=== PATIENT | female | born 1965 | race Native Hawaiian/Other Pacific Islander ===

== ENCOUNTER 2017-06-24 12:09 | Inpatient (IN) | payer OTHER ==
[2017-06-24] VITALS (8 sets, daily range): BP systolic 98–109; BP diastolic 46–67; PULSE 62–85; RESP 18; TEMP 97.5–97.6; O2SAT 98–100
[~2017-06-24] VITALS: Ht 154.9 cm; Wt 57.0 kg
[2017-06-24] MEDS ORDERED: PROCHLORPERAZINE INJ 10 MG/2 ML VIAL IV PUSH ONE (12:45)
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
[2017-06-24] MEDS ORDERED: MORPHINE SULFATE 8 MG/ML INJ IV PUSH ONE (14:30)
[2017-06-24] MEDS ORDERED: ONDANSETRON HCL 4 MG/2 ML VIAL IV PUSH ONE (14:30)
[2017-06-24 14:59] LABS: AUTOMATED NEUTROPHIL # 4.5 TH/MM3 (1.8-7.7); BASOPHIL % 0.6 % (0.0-2.0); EOSINOPHIL % 0.1 % (0.0-4.0); HEMATOCRIT 36.3 % (35.0-46.0); HEMOGLOBIN 12.4 GM/DL (11.6-15.3); LYMPH % 14.8 % (9.0-44.0); LYMPHOCYTE # 0.8 TH/MM3 (1.0-4.8); MEAN CELL VOLUME 95.4 FL (80.0-100.0); MEAN CORPUSCULAR HEMOGLOBIN 32.6 PG (27.0-34.0); MEAN CORPUSCULAR HGB CONC 34.2 % (32.0-36.0); MEAN PLATELET VOLUME 9.2 FL (7.0-11.0); MONO % 3.7 % (0.0-8.0); MONOCYTE # 0.2 TH/MM3 (0-0.9); NEUT % 80.8 % (16.0-70.0); PLATELET COUNT 223 TH/MM3 (150-450); RED BLOOD COUNT 3.81 MIL/MM3 (4.00-5.30); RED CELL DISTRIBUTION WIDTH 13.2 % (11.6-17.2); WHITE BLOOD COUNT 5.5 TH/MM3 (4.0-11.0)
[2017-06-24 15:17] LABS: BICARBONATE 23.6 MEQ/L (21.0-32.0); CALCIUM 8.2 MG/DL (8.5-10.1); CREATININE 0.86 MG/DL (0.50-1.00)
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
[2017-06-24] MEDS ORDERED: IOHEXOL 350 MG/ML 10 ML VIAL (for RAD DIAG) IVCONTRAST ONE (17:00)
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
--- NOTE | 2017-06-24 18:11 | RADRPT ---
EXAM DATE/TIME: 06/24/2017 16:48 [facility] COMPARISON: CT CERVICAL SPINE W/O CONTRAST, June 24, 2017, 13:15. CT FACIAL BONES W/O C ONTRAST, June 24, 2017, 13:15. INDICATIONS : Abnormal prior CT cervical spine. IV CONTRAST: 75 cc Omnipaque 350 (iohexol) IV RADIATION DOSE: 6.53 CTDIvol (mGy) MEDICAL HISTORY : None SURGICAL HISTORY : None. ENCOUNTER: Initial ACUITY: 1 day PAIN SCALE: 7/10 LOCATION: Bilateral neck Elevated flow velocities and ICA/CCA ratios have been found to correlate with increased degrees of vessel stenosis, calculated as percentage of diameter relative to a normal segment of distal ICA/CCA. TECHNIQUE: Volumetric scanning was performed using a multirow detector CT scanner. The data was post processed with a variety of visualization algorithms including full-volume maximum intensity pro jection, multiplanar sliding thin-slab reformation, curved-planar reformation, and surface-rendering techniques. Using automated exposure control and adjustment of the mA and/or kV according to patient size, radiation dose was kept as low as reasonably achievable to obtain optimal diagnostic quality i mages. DICOM format image data is available electronically for review and comparison. FINDINGS: AORTIC ARCH: There is a three-vessel origin of the great vessels from the aorta. No evidence of ostial narrowing. RIGHT CAROTID: The right common carotid is widely patent. The bifurcation is patent. The right in ternal carotid is patent throughout its course however it is significantly smaller in size than the l eft. There is no evidence of dissection. No definite intimal hematoma is seen. It is possible this is on a congenital basis however I cannot exclude this being the result of a posttraumatic injury to th e carotid. LEFT CAROTID: The left common carotid is widely patent. The bifurcation is patent. The internal c arotid and external carotid are widely patent throughout its course. Both vertebral arteries are patent. The basilar is patent. VERTEBRALS: The vertebral arteries have a symmetric diameter. No stenotic lesions are seen. CONCLUSION: 1. The examination demonstrates the right internal carotid to be considerably smaller in size than th e left. I do not see definite evidence of a dissection I do not see definite evidence of intimal cesar dong. It is possible this is on a congenital basis however I cannot exclude this as a sequelae of tra umatic injury. I would recommend this patient undergo a followup examination in 24 hours to assess th is for stability. 2. The vertebral arteries are widely patent bilaterally. 3. The left carotid circulation is widely patent. Jr Lee MD on June 24, 2017 at 18:01 Board Certified Radiologist. This report was verified electronically.
[2017-06-24] MEDS ORDERED: Post-op Orders (for Pharmacy) XX ONE (18:45)
[2017-06-24] MEDS ORDERED: NALOXONE HCL 0.4 MG/ML AMP IV PUSH PRN (18:45)
[2017-06-24] MEDS ORDERED: SODIUM CHLORIDE 0.9% FLUSH 10 ML FLUSH IV FLUSH PRN (18:45)
[2017-06-24] MEDS ORDERED: ONDANSETRON HCL 4 MG/2 ML VIAL IV PUSH PRN (18:45)
[2017-06-24] MEDS: SODIUM CHLORIDE 0.9% FLUSH 10 ML FLUSH IV FLUSH SCH (19:06)
[2017-06-24] MEDS: FAMOTIDINE 20 MG TAB PO SCH (19:06)
[2017-06-24] MEDS ORDERED: ACETAMINOPHEN 325 MG TAB PO PRN (19:15)
[2017-06-24] MEDS: SODIUM CHLOR 0.9% 1000 ML INJ 1,000 ML IV SCH (19:22)
[2017-06-24] MEDS: BACITRACIN TOP OINT 15 GM TUBE TOP SCH (19:22)
[2017-06-25 01:00] VITALS: BP 95/54; PULSE 66; RESP 18; O2SAT 99
[2017-06-25 03:00] VITALS: BP 91/56; PULSE 62; RESP 18; O2SAT 99
[2017-06-25] MEDS ORDERED: DIPHTH/TETANUS/ACEL PERTUSSIS (BOOSTER) 0.5 ML VIAL/PFS IM ONE (03:45)
[2017-06-25 05:55] VITALS: BP 91/54; PULSE 70; RESP 17; TEMP 97.3; O2SAT 99
[2017-06-25 07:36] VITALS: BP 92/50; PULSE 71; RESP 18; TEMP 97.5; O2SAT 97
[2017-06-25] MEDS ORDERED: DOCUSATE SODIUM 50 MG/SENNA 8.6 MG TAB PO SCH (09:00)
[2017-06-25] MEDS: SODIUM CHLORIDE 0.9% FLUSH 10 ML FLUSH IV FLUSH SCH (09:00)
[2017-06-25] MEDS: FAMOTIDINE 20 MG TAB PO SCH (09:00)
[2017-06-25] MEDS: SODIUM CHLOR 0.9% 1000 ML INJ 1,000 ML IV SCH (10:57)
[2017-06-25] MEDS: BACITRACIN TOP OINT 15 GM TUBE TOP SCH (11:26)
[2017-06-25 11:30] VITALS: BP 93/52; PULSE 73; RESP 18; TEMP 97.8; O2SAT 100
[2017-06-25] MEDS ORDERED: PERI PO (13:08)
[2017-06-25] MEDS ORDERED: ACET325T15 PO (13:08)
[2017-06-25 13:52] LABS: AUTOMATED NEUTROPHIL # 3.6 TH/MM3 (1.8-7.7); BASOPHIL % 0.4 % (0.0-2.0); EOSINOPHIL % 0.8 % (0.0-4.0); HEMATOCRIT 36.9 % (35.0-46.0); HEMOGLOBIN 12.4 GM/DL (11.6-15.3); LYMPH % 27.1 % (9.0-44.0); LYMPHOCYTE # 1.5 TH/MM3 (1.0-4.8); MEAN CELL VOLUME 96.3 FL (80.0-100.0); MEAN CORPUSCULAR HEMOGLOBIN 32.4 PG (27.0-34.0); MEAN CORPUSCULAR HGB CONC 33.6 % (32.0-36.0); MONO % 7.6 % (0.0-8.0); MONOCYTE # 0.4 TH/MM3 (0-0.9); NEUT % 64.1 % (16.0-70.0); PLATELET COUNT 208 TH/MM3 (150-450); RED BLOOD COUNT 3.83 MIL/MM3 (4.00-5.30); RED CELL DISTRIBUTION WIDTH 13.7 % (11.6-17.2); WHITE BLOOD COUNT 5.5 TH/MM3 (4.0-11.0)
[2017-06-25 14:19] LABS: BICARBONATE 26.5 MEQ/L (21.0-32.0); CALCIUM 7.8 MG/DL (8.5-10.1); CREATININE 0.73 MG/DL (0.50-1.00)
[2017-06-25 15:40] VITALS: BP 92/57; PULSE 63; RESP 18; TEMP 98.8; O2SAT 97
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
== END 2017-06-25 17:55 | disposition left against medical advice (07) | DRG 89 ==
LOC: NEPE 12:09 → NEDA 18:39 → NEDH 23:22 → N06A 06-25 05:50
PROVIDERS: ADMIT Surgery; ATTEND Surgery
DX: S06.0X9A Concussion with loss of consciousness of unspecified duration, initial encounter (principal); S15.001A Unspecified injury of right carotid artery, initial encounter; S00.31XA Abrasion of nose, initial encounter; S80.211A Abrasion, right knee, initial encounter; S80.212A Abrasion, left knee, initial encounter; S00.81XA Abrasion of other part of head, initial encounter; V18.0XXA Pedal cycle driver injured in noncollision transport accident in nontraffic accident, initial encounter; Z88.0 Allergy status to penicillin; Z88.5 Allergy status to narcotic agent
CPT/HCPCS: 70450; 70486; 70498; 72125; 72141; 72146; 73560; 80048; 85025; 94150; 96374; 96375; J0780; J2270; J2405; J7030; Q9967